=== PATIENT | female | born 1995 | race Caucasian/White ===

== ENCOUNTER 2019-01-26 23:39 | Emergency (ER) | payer OTHER ==
[~2019-01-26] VITALS: Ht 157.5 cm; Wt 79.7 kg
[2019-01-27] MEDS ORDERED: ONDANSETRON ODT 4 MG PO ONE
[2019-01-27] MEDS ORDERED: ONDANSETRON ODT 4 MG ONE (00:02)
--- NOTE | 2019-01-27 00:21 | NUR ---
MED PER MAR, PT DENIES ANY NAUSEA AT THIS TIME. AMBULATORY TO RESTROOM C STEADY GAIT. PHLEB AT BS.
[2019-01-27 00:23] LABS: BASOPHILS # (AUTO) 0.11 x10^3/uL (0-0.1); BASOPHILS % (AUTO) 1 % (0-1); EOSINOPHILS % (AUTO) 2 % (1-7); LYMPHOCYTES # (AUTO) 2.39 x10^3/uL (1-3.4); LYMPHOCYTES % (AUTO) 21 % (22-44); MD NO; MEAN CORPUSCULAR HEMOGLOBIN 31.1 pg (27.0-34.8); MEAN CORPUSCULAR HGB CONC 33.4 g/dL (32.4-35.8); MEAN CORPUSCULAR VOLUME 93.3 fL (80-100); MONOCYTES % (AUTO) 8 % (2-9); NEUTROPHILS % (AUTO) 69 % (42-75); PLATELET COUNT 259 x10^3/uL (130-400); RED BLOOD COUNT 4.62 x10^6/uL (3.82-5.3); RED CELL DISTRIBUTION WIDTH 13.6 % (9.6-15.2)
[2019-01-27 00:27] LABS: MICROSCOPIC NOT IND
[2019-01-27 00:36] LABS: ALANINE AMINOTRANSFERASE 40 U/L (12-78); ALBUMIN 3.9 g/dL (3.4-5.0); ANION GAP 5 mmol/L (5-15); CALCIUM 8.7 mg/dL (8.5-10.1); CHLORIDE 108 mmol/L (98-107)
[2019-01-27 00:39] LABS: CULTURE INDICATED? NO
[2019-01-27 00:41] LABS: ALKALINE PHOSPHATASE 53 U/L (45-117); BILIRUBIN,TOTAL 0.2 mg/dL (0.2-1.0); TOTAL PROTEIN 7.6 g/dL (6.4-8.2)
[2019-01-27 02:09] VITALS: BP 132/65
== END 2019-01-27 02:12 | disposition home or self-care (01) ==
LOC: ED 23:59
DX: K80.20 Calculus of gallbladder without cholecystitis without obstruction (principal); R10.13 Epigastric pain
CPT/HCPCS: 36415; 76700; 80053; 81003; 83690; 84703; 85025; 99284; Q0162

== ENCOUNTER 2019-03-29 22:44 | Emergency (ER) | payer OTHER ==
[~2019-03-29] VITALS: Ht 154.9 cm; Wt 74.9 kg
[2019-03-29 22:49] VITALS: BP 149/74
[2019-03-29] MEDS ORDERED: SODIUM CHLORIDE 0.9% 1,000ML IVBOLUS ONE (23:00)
[2019-03-29] MEDS ORDERED: HYDROmorphone 2 MG/ML, 1ML IVPush PRN (23:00)
[2019-03-29] MEDS ORDERED: SODIUM CHLORIDE FLUSH 10ML SYR IVF ONE (23:00)
[2019-03-29] MEDS ORDERED: ONDANSETRON 2MG/ML, 2ML IVPush ONE (23:00)
[2019-03-29] MEDS ORDERED: IBUPROFEN 600 MG TABLET ONE (23:11)
[2019-03-29 23:15] LABS: MICROSCOPIC AUTO
[2019-03-29 23:21] LABS: CULTURE INDICATED? YES
[2019-03-29] MEDS ORDERED: IBUPROFEN 600 MG TABLET PO ONE (23:30)
== END 2019-03-29 23:30 ==
LOC: ED 23:10
DX: K80.70 Calculus of gallbladder and bile duct without cholecystitis without obstruction (principal); R10.11 Right upper quadrant pain; Z90.49 Acquired absence of other specified parts of digestive tract
CPT/HCPCS: 81001; 87077; 87086; 99283